=== PATIENT | male | born 1985 | race Caucasian/White ===

== ENCOUNTER 2018-03-28 01:34 | Emergency (ER) | payer OTHER ==
[~2018-03-28] VITALS: Ht 182.9 cm; Wt 101.7 kg
[2018-03-28 01:36] VITALS: BP 156/101
[2018-03-28] MEDS ORDERED: BUPIVACAINE 0.25% ONE (02:18)
== END 2018-03-28 02:38 | disposition home or self-care (01) ==
LOC: ED 02:12
DX: K02.9 Dental caries, unspecified (principal); F17.200 Nicotine dependence, unspecified, uncomplicated; K08.89 Other specified disorders of teeth and supporting structures
CPT/HCPCS: 64400; 99284